=== PATIENT | female | born 1980 | race Hispanic/Latino ===

== ENCOUNTER 2019-01-03 17:31 | Emergency (ER) | payer BC, MEDICAID, OTHER | END 2019-01-03 18:45 | disposition left against medical advice (07) | LOC: EDH 17:31 | DX: Z53.21 Procedure and treatment not carried out due to patient leaving prior to being seen by health care provider (principal) ==

== ENCOUNTER → 2021-07-13 | Outpatient (CLI) | payer BC, MEDICAID | LOC: RAH 10:01 | PROVIDERS: ATTEND Family Medicine | DX: K30 Functional dyspepsia (principal); R13.10 Dysphagia, unspecified; E03.9 Hypothyroidism, unspecified; K21.9 Gastro-esophageal reflux disease without esophagitis | CPT/HCPCS: 74240; 76536 ==

== ENCOUNTER 2021-12-19 11:45 | Day surgery (SDC) | payer BC, MEDICAID ==
[2021-12-19] VITALS (8 sets, daily range): BP systolic 115–133; BP diastolic 68–86
[~2021-12-19] VITALS: Ht 162.6 cm; Wt 74.8 kg
[2021-12-19] MEDS ORDERED: LEVO50CA4 PO (12:16)
[2021-12-19] MEDS ORDERED: PROPOFOL 10 MG/ML 20ML VIAL IV ONE (12:43)
[2021-12-19] MEDS ORDERED: PROPRANOLOL PO (13:41)
[2021-12-19] MEDS ORDERED: TOPI25TA48 PO (13:41)
[2021-12-19] MEDS ORDERED: OMEP20CA12 PO (13:47)
[2021-12-19] MEDS ORDERED: HYDR30CR79 RC (13:48)
== END 2021-12-19 14:10 | disposition home or self-care (01) ==
LOC: DAH 11:45 → ENDO 11:45
PROVIDERS: ATTEND Internal Medicine Gastroenterology
DX: R93.3 Abnormal findings on diagnostic imaging of other parts of digestive tract (principal); R13.12 Dysphagia, oropharyngeal phase; K57.30 Diverticulosis of large intestine without perforation or abscess without bleeding; K64.1 Second degree hemorrhoids; K22.2 Esophageal obstruction; K44.9 Diaphragmatic hernia without obstruction or gangrene; K21.00 Gastro-esophageal reflux disease with esophagitis, without bleeding; K29.00 Acute gastritis without bleeding; I10 Essential (primary) hypertension; E03.9 Hypothyroidism, unspecified; Z98.891 History of uterine scar from previous surgery; Z83.3 Family history of diabetes mellitus; Z82.49 Family history of ischemic heart disease and other diseases of the circulatory system; Z82.3 Family history of stroke; Z80.0 Family history of malignant neoplasm of digestive organs; Z82.5 Family history of asthma and other chronic lower respiratory diseases; Z98.890 Other specified postprocedural states; Z80.42 Family history of malignant neoplasm of prostate; Z87.891 Personal history of nicotine dependence
CPT/HCPCS: 87426; 43245; 84703; 36415; 43249; 45378; 43239; J2704; A4620; A4215 ×2; A4223; A4221; A4663; J7030; A4606; C1726

== ENCOUNTER → 2022-05-23 | Outpatient (CLI) | payer MEDICAID ==
[~2022-05-23] MED LIST: HYDR30CR79 RC; LEVO50CA4 PO; OMEP20CA12 PO; PROPRANOLOL PO; TOPI25TA48 PO
== END | disposition home or self-care (01) ==
LOC: RAH 08:51
PROVIDERS: ATTEND Physical Medicine & Rehabilitation
DX: M77.11 Lateral epicondylitis, right elbow (principal)
CPT/HCPCS: 73221